=== PATIENT | male | born 1965 | race Caucasian/White ===

== ENCOUNTER 2017-11-22 12:37 | Emergency (ER) | payer OTHER ==
--- NOTE | 2017-11-22 14:19 | RAD REPORT ---
EXAM DESCRIPTION: RAD - Pelvis - 11/22/2017 2:12 pm CLINICAL HISTORY: Fall, right hip pain COMPARISON: None. FINDINGS: AP pelvis, right hip and right femur, multiple projections are submitted. No fracture or dislocation is seen. IMPRESSION: Negative examinations.
--- NOTE | 2017-11-22 14:22 | RAD REPORT ---
EXAM DESCRIPTION: Lumbar Spine 3 Views CLINICAL HISTORY: Fall, back pain and radiculopathy. COMPARISON: None. FINDINGS: Vertebral body heights appear maintained. No compression fracture noted. Mild disc thinnin g is present in the lower lumbar spine, most notable at L5-S1. 4-5 mm degenerative retrolisthesis of L5 on S1 seen. Cholecystectomy clips are present. IMPRESSION: No acute lumbar spine finding. Mild L5-S1 spondylosis.
[2017-11-22] MEDS ORDERED: KETOROLAC 30 MG/ML INJ ONE ×2 (14:54→14:56)
--- NOTE | 2017-11-22 14:56 | RAD REPORT ---
EXAM DESCRIPTION: RAD - Hip Right 2 View - 11/22/2017 2:12 pm CLINICAL HISTORY: Fall, right hip pain COMPARISON: None. FINDINGS: AP pelvis, right hip and right femur, multiple projections are submitted. No fracture or dislocation is seen. IMPRESSION: Negative examinations.
--- NOTE | 2017-11-22 14:56 | RAD REPORT ---
EXAM DESCRIPTION: RAD - Femur Right - 11/22/2017 2:12 pm CLINICAL HISTORY: Fall, right hip pain COMPARISON: None. FINDINGS: AP pelvis, right hip and right femur, multiple projections are submitted. No fracture or dislocation is seen. IMPRESSION: Negative examinations.
--- NOTE | 2017-11-22 15:35 | RAD REPORT ---
EXAM DESCRIPTION: CT - Spine Lumbar Wo Con - 11/22/2017 3:28 pm CLINICAL HISTORY: Fall, back pain and radiculopathy. COMPARISON: None. TECHNIQUE: Axial noncontrast CT imaging of the lumbar spine was performed with coronal and sagittal re-formatted images. All CT scans are performed using dose optimization technique as appropriate and may include automated exposure control or mA/KV adjustment according to patient size. FINDINGS: No acute lumbar spine fracture seen. No aggressive marrow pattern or malalignment. Paraspinal tissues are normal in thickness. No paraspinal abscess or hematoma seen. Mild spondylosis with minimal retrolisthesis noted at L5-S1. Disc assessment is limited by CT without high-grade canal stenosis suspected. IMPRESSION: No acute lumbar spine finding is identified. Consider MRI follow-up for assessment of disc disease if clinically desired.
--- NOTE | 2017-11-22 15:41 | RAD REPORT ---
EXAM DESCRIPTION: CT - Pelvis Wo Cont - 11/22/2017 3:29 pm CLINICAL HISTORY: Fall, right hip pain COMPARISON: Recent plain radiographs. TECHNIQUE: All CT scans are performed using dose optimization technique as appropriate and may inclu de automated exposure control or mA/KV adjustment according to patient size. FINDINGS: No acute fracture or dislocation is seen. No aggressive bone lesion or evidence of AVN. No pelvic fracture. Sacral ala are symmetric and intact. No intrapelvic abnormality is seen. No mass, fluid collections or hematoma suspected. IMPRESSION: No acute process identified.
[2017-11-22] MEDS ORDERED: HYDROCODONE/APAP 7.5/325 MG TAB ONE (15:45)
--- NOTE | 2017-11-22 17:01 | EDPHYS ---
Physician Documentation [facility] Name: Cedrick Kirkpatrick Age: 52 yrs Sex: Male : 1965 Arrival Date: 11/22/2017 Time: 12:41 Bed 16 Private MD: ED Physician Guillaume Healy HPI: 11/22 13:42 This 52 yrs old Male presents to ER via Ambulatory with complaints of Hip cp Pain. 13:42 The patient or guardian reports decreased range of motion, pain. sustained from. The cp complaints affect the right hip. Onset: The symptoms/episode began/occurred 6 day(s) ago. 13:42 Associated signs and symptoms: Loss of consciousness: the patient experienced no loss cp of consciousness, Pertinent negatives: abdominal pain, chest pain, dysuria, incontinence, weakness, numbness. 13:42 Patient reports he was trimming tress on ladder when he slipped and fell landing on cp right hip. Patient reports he was seen at [place] [facility] and had xrays done that were negative for fracture. Historical: - Allergies: 12:52 No Known Allergies; hj - Home Meds: 12:52 None [Active]; hj - PMHx: 12:52 Cyst on L lung; Seizures; hj - PSHx: 12:52 Rotator cuff repair; Finger surgeries; hj - Immunization history:: Adult Immunizations unknown. - Social history:: Smoking status: Patient/guardian denies using tobacco. ROS: 13:45 Constitutional: Negative for body aches, chills, fever, poor PO intake. cp 13:45 Eyes: Negative for injury, pain, redness, and discharge, ENT: Negative for injury, cp pain, and discharge, Neck: Negative for injury, pain, and swelling, Cardiovascular: Negative for chest pain, palpitations, and edema, Respiratory: Negative for shortness of breath, cough, wheezing, and pleuritic chest pain. 13:45 Abdomen/GI: Negative for abdominal pain, nausea, vomiting, and diarrhea, constipation, black/tarry stool, rectal bleeding. 13:45 Back: Positive for pain at rest, pain with movement, of the lumbar area. 13:45 MS/extremity: Positive for decreased range of motion, pain, tenderness, of the right hip, difficulty bearing weight. 13:45 Skin: Negative for cellulitis, rash. 13:45 Neuro: Negative for altered mental status, headache, numbness. 13:45 All other systems are negative. Exam: 13:52 Constitutional: The patient appears in no acute distress, alert, awake, cp non-diaphoretic, non-toxic, well developed, well nourished, uncomfortable. 13:52 Head/Face: Normocephalic, atraumatic. cp 13:52 Eyes: Periorbital structures: appear normal, Conjunctiva: normal, no exudate, no injection, Sclera: no appreciated abnormality, Lids and lashes: appear normal, bilaterally. 13:52 ENT: External ear(s): are unremarkable, Nose: is normal, Mouth: Lips: moist, Oral mucosa: moist, Posterior pharynx: is normal, airway is patent. 13:52 Neck: External neck: is normal, ROM/movement: is normal, is supple, without pain, no range of motions limitations, no nuchal rigidity. 13:52 Chest/axilla: Inspection: normal, Palpation: is normal, no crepitus, no tenderness. 13:52 Cardiovascular: Rate: normal, Rhythm: regular. 13:52 Respiratory: the patient does not display signs of respiratory distress, Respirations: normal, no use of accessory muscles, no retractions, no splinting, no tachypnea, Breath sounds: are clear throughout, no decreased breath sounds, no stridor, no wheezing. 13:52 Abdomen/GI: Inspection: bruising, right lower quadrant, distension, is not seen, Bowel sounds: active, all quadrants, Palpation: soft, in all quadrants, nontender, in all quadrants, rebound tenderness, is not appreciated, involuntary guarding, is not appreciated. 13:52 Back: pain, that is mild, of the lumbar area, ROM is painful. 13:52 Musculoskeletal/extremity: Joints: All joints are normal except the right hip displays pain at rest, painful range of motion, tenderness. 13:52 Skin: cellulitis, is not appreciated, no rash present. Vital Signs: 12:53 BP 119 / 81; Pulse 72; Resp 18; Temp 98.2(TE); Pulse Ox 99% on R/A; Weight 77.11 kg; hj Height 5 ft. 10 in. (177.80 cm); Pain 10/10; 15:50 BP 148 / 88; Pulse 52; Resp 17; Pulse Ox 99% on R/A; wh 16:56 BP 136 / 102; Pulse 58; Resp 17; Pulse Ox 99% on R/A; wh 12:53 Body Mass Index 24.39 (77.11 kg, 177.80 cm) hj Procedures: 16:30 Crutch training provided to patient and/or family. Return demonstration given. cp MDM: 13:08 Patient medically screened. cp 14:00 Differential diagnosis: hip fracture, intertrochanteric fracture, femoral neck cp fracture, femoral shaft fracture, dislocation. 16:00 Data reviewed: vital signs, nurses notes, radiologic studies, CT scan, plain films. cp 16:00 Test interpretation: by ED physician or midlevel provider: plain radiologic studies. cp 17:00 Response to treatment: the patient's symptoms have markedly improved after treatment, cp VSS. Radiology studies negative for acute fracture. Will discharge to home for continued monitoring. 11/22 13:37 Order name: Pelvis XRAY; Complete Time: 14:58 cp 11/22 13:37 Order name: XRAY Hip RIGHT 2 view; Complete Time: 15:54 cp 11/22 13:37 Order name: XRAY Lumbar Spine (3 Views); Complete Time: 14:58 cp 11/22 13:37 Order name: XRAY Femur RIGHT; Complete Time: 15:54 cp 11/22 15:01 Order name: CT Lumbar Spine Wo Con; Complete Time: 15:54 cp 11/22 15:01 Order name: CT Pelvis wo Cont; Complete Time: 15:54 cp 11/22 15:55 Interpretation: Report reviewed. cp 11/22 14:18 Order name: Misc. Order: ambulate patient; Complete Time: 15:42 cp 11/22 15:58 Order name: Crutches; Complete Time: 16:03 cp Administered Medications: 14:39 Drug: TORadol 60 mg Route: IM; Site: right gluteus; 16:57 Follow up: Response: No adverse reaction 15:41 Drug: Hydrocodone-Acetaminophen (7.5 mg-325 mg) 1 tabs Route: PO; wh 16:57 Follow up: Response: No adverse reaction 17:31 Follow up: Response: No adverse reaction Disposition: 11/23 10:30 Co-signature as Attending Physician, Guillaume Healy MD I agree with the assessment and nataly plan of care. Disposition: 11/22/17 17:01 Discharged to Home. Impression: Pain in right hip - from fall, Fall on and from ladder. - Condition is Stable. - Discharge Instructions: Hip Pain. - Prescriptions for Cyclobenzaprine 10 mg Oral Tablet - take 1 tablet by ORAL route every 8 hours As needed; 20 tablet. Medrol (Nadir) 4 mg Oral Tablets, Dose Pack - take 1 tablet by ORAL route as directed - follow package instructions; 1 packet. Tylenol- Codeine #3 300-30 mg Oral Tablet - take 2 tablets by ORAL route every 6 hours As needed; 15 tablet. - Medication Reconciliation Form, Thank You Letter, Antibiotic Education, Prescription Opioid Use form. - Follow up: Private Physician; When: 1 - 2 days; Reason: Recheck today's complaints. - Problem is new. - Symptoms have improved. Signatures: Dispatcher [employer] EDGuillaume Osborne MD MD cha Joaquin, Henry, RN RN Guillaume Jackson PA PA cp Habalo, Winsy wh Corrections: (The following items were deleted from the chart) 16:40 11/22 16:00 Counseling: I had a detailed discussion with the patient and/or guardian cp regarding: the historical points, exam findings, and any diagnostic results supporting the discharge/admit diagnosis, radiology results, the need for outpatient follow up, a family practitioner, to return to the emergency department if symptoms worsen or persist or if there are any questions or concerns that arise at home, cp 11/23 16:40 11/22 16:00 Response to treatment: the patient's symptoms have markedly improved after cp treatment, VSS. Radiology studies negative for acute fracture. Will discharge to home for continued monitoring, cp
--- NOTE | 2017-11-22 17:01 | ER ---
Nurse's Notes [facility] Name: Cedrick Kirkpatrick Age: 52 yrs Sex: Male : 1965 Arrival Date: 11/22/2017 Time: 12:41 Bed 16 Private MD: Diagnosis: Pain in right hip-from fall;Fall on and from ladder Presentation: 11/22 12:50 Presenting complaint: Patient states: was trimming some trees and fell and hurt my R hj hip, went to [place] and told me they didn't see anything, now the pain is getting worse; reports severe pain that radiates to the R leg;. Transition of care: patient was not received from another setting of care. Onset of symptoms was November 22, 2017. Care prior to arrival: None. 12:50 Method Of Arrival: Ambulatory 12:50 Acuity: ERUM 4 hj Triage Assessment: 12:52 General: Appears in no apparent distress. uncomfortable, Behavior is calm, cooperative, hj appropriate for age. Pain: Complains of pain in right hip. Historical: - Allergies: 12:52 No Known Allergies; hj - Home Meds: 12:52 None [Active]; hj - PMHx: 12:52 Cyst on L lung; Seizures; hj - PSHx: 12:52 Rotator cuff repair; Finger surgeries; hj - Immunization history:: Adult Immunizations unknown. - Social history:: Smoking status: Patient/guardian denies using tobacco. Screenin:55 Abuse screen: Denies threats or abuse. Denies injuries from another. Nutritional wh screening: No deficits noted. Tuberculosis screening: No symptoms or risk factors identified. Fall Risk Fall in past 12 months (25 points). Assessment: 13:35 General: Appears in no apparent distress. uncomfortable, Behavior is calm, cooperative, wh appropriate for age. Pain: Complains of pain in right hip pain Pain does not radiate. Pain currently is 10 out of 10 on a pain scale. Pain began 5 days ago Aggravated by walking. Neuro: Level of Consciousness is awake, alert, obeys commands, Oriented to person, place, time, situation, Remote Sensing Research Scientist are equal bilaterally. Cardiovascular: Denies chest pain, Capillary refill < 3 seconds. Respiratory: Airway is patent Respiratory effort is even, unlabored, Respiratory pattern is regular, symmetrical. GI: Abdomen is flat, non-distended, Abd is soft and non tender. : No signs and/or symptoms were reported regarding the genitourinary system. EENT: No signs and/or symptoms were reported regarding the EENT system. Derm: Skin is intact, is healthy with good turgor, Skin is pink, warm \T\ dry. normal. Musculoskeletal: Range of motion: intact in all extremities. 14:45 Reassessment: Patient appears in no apparent distress at this time. Patient and/or wh family updated on plan of care and expected duration. Pain level reassessed. Patient is alert, oriented x 3, equal unlabored respirations, skin warm/dry/pink. 15:55 Reassessment: Patient appears in no apparent distress at this time. Patient and/or wh family updated on plan of care and expected duration. Pain level reassessed. Patient is alert, oriented x 3, equal unlabored respirations, skin warm/dry/pink. Patient states feeling better. 16:56 Reassessment: Patient appears in no apparent distress at this time. Patient and/or wh family updated on plan of care and expected duration. Pain level reassessed. Patient is alert, oriented x 3, equal unlabored respirations, skin warm/dry/pink. Patient states feeling better. Vital Signs: 12:53 BP 119 / 81; Pulse 72; Resp 18; Temp 98.2(TE); Pulse Ox 99% on R/A; Weight 77.11 kg; hj Height 5 ft. 10 in. (177.80 cm); Pain 10/10; 15:50 BP 148 / 88; Pulse 52; Resp 17; Pulse Ox 99% on R/A; wh 16:56 BP 136 / 102; Pulse 58; Resp 17; Pulse Ox 99% on R/A; wh 12:53 Body Mass Index 24.39 (77.11 kg, 177.80 cm) ED Course: 12:41 Patient arrived in ED. mr 12:52 Triage completed. hj 12:53 Arm band placed on right wrist. hj 13:08 Guillaume Malin PA is PHCP. cp 13:08 Guillaume Healy MD is Attending Physician. cp 13:27 Celso Chang is Primary Nurse. 13:53 Patient moved to radiology via wheelchair. sw 14:10 X-ray completed. Patient tolerated procedure poorly. PT UNABLE TO POSITION PROPERLY DUE sw TO PAIN. 14:11 Patient moved back from radiology. sw 14:12 Pelvis XRAY In Process Unspecified. EDMS 14:12 XRAY Hip RIGHT 2 view In Process Unspecified. EDMS 14:12 XRAY Lumbar Spine (3 Views) In Process Unspecified. EDMS 14:12 XRAY Femur RIGHT In Process Unspecified. EDMS 15:28 CT Lumbar Spine Wo Con In Process Unspecified. EDMS 15:28 CT Pelvis wo Cont In Process Unspecified. EDMS 15:56 Patient has correct armband on for positive identification. Placed in gown. Bed in low wh position. Call light in reach. Side rails up X 1. Pulse ox on. NIBP on. 17:30 No provider procedures requiring assistance completed. Patient did not have IV access wh during this emergency room visit. Administered Medications: 14:39 Drug: TORadol 60 mg Route: IM; Site: right gluteus; wh 16:57 Follow up: Response: No adverse reaction 15:41 Drug: Hydrocodone-Acetaminophen (7.5 mg-325 mg) 1 tabs Route: PO; 16:57 Follow up: Response: No adverse reaction 17:31 Follow up: Response: No adverse reaction Outcome: 17:01 Discharge ordered by . mylene 17:30 Discharged to home ambulatory. 17:30 Condition: improved 17:30 Discharge instructions given to patient, Instructed on discharge instructions, follow up and referral plans. no drinking with medication, no driving heavy equipment, medication usage, crutch walking, POC Hip pain Demonstrated understanding of instructions, follow-up care, medications, crutch walking, POC Prescriptions given X 3. 17:32 Patient left the ED. Signatures: Dispatcher [employer] EDFL Brittaney Douglas Ann Zamorano Simeon Mullen RN RN Guillaume Jackson PA PA cp Habalo, Winsy Corrections: (The following items were deleted from the chart) 12:55 12:53 Pulse 72bpm; Resp 18bpm; Pulse Ox 99% RA; Temp 98.2F Temporal; 77.11 kg; Height 5 hj ft. 10 in.; BMI: 24.3; Pain 10/10; hj 15:54 01:35 General: Appears in no apparent distress. uncomfortable, Behavior is calm, wh cooperative, appropriate for age, wh 15:54 01:35 Pain: Complains of pain in right hip pain Pain does not radiate. Pain currently wh is 10 out of 10 on a pain scale. Pain began 5 days ago Aggravated by walking 01:35 Neuro: Level of Consciousness is awake, alert, obeys commands, Oriented to wh person, place, time, situation, Remote Sensing Research Scientist are equal bilaterally 01:35 Cardiovascular: Denies chest pain, Capillary refill < 3 seconds [facility] 01:35 Respiratory: Airway is patent Respiratory effort is even, unlabored, Respiratory wh pattern is regular, symmetrical, 01:35 GI: Abdomen is flat, non-distended, Abd is soft and non tender [facility] 01:35 : No signs and/or symptoms were reported regarding the genitourinary system. [facility] 01:35 EENT: No signs and/or symptoms were reported regarding the EENT system. [facility] 01:35 Derm: Skin is intact, is healthy with good turgor, Skin is pink, warm \T\ dry. wh normal, 01:35 Musculoskeletal: Range of motion: intact in all extremities, [facility] 15:57 13:50 BP 148 / 88; Pulse 52bpm; Resp 17bpm; Pulse Ox 99% RA; [facility]
== END 2017-11-22 17:32 | disposition home or self-care (01) ==
LOC: ER 12:37
DX: M25.551 Pain in right hip (principal); W11.XXXA Fall on and from ladder, initial encounter; Y93.89 Activity, other specified; Y92.9 Unspecified place or not applicable
CPT/HCPCS: 72100; 72131; 72170; 72192; 96372; 99284